=== PATIENT | female | born 1970 | race Caucasian/White ===

== ENCOUNTER 2022-08-14 21:09 | Emergency (ER) | payer MEDICAID ==
--- NOTE | 2022-08-14 22:00 | NUR ---
Patient left without being triaged. ER MD aware
== END 2022-08-14 22:00 | disposition left against medical advice (07) ==
LOC: SED 21:09
DX: R05.9 Cough, unspecified (principal); R50.9 Fever, unspecified; R51.9 Headache, unspecified; Z53.21 Procedure and treatment not carried out due to patient leaving prior to being seen by health care provider

== ENCOUNTER 2024-02-18 19:12 | Emergency (ER) | payer MEDICAID ==
[~2024-02-18] VITALS: Ht 160 cm; Wt 96.2 kg
[2024-02-18 19:14] VITALS: BP_SYST 157; TEMP 98; O2SAT 95
[2024-02-18 19:41] LABS: BASOPHILS # (AUTO) 0.2 K/uL (0.0-0.2); EOSINOPHILS # (AUTO) 0.3 K/uL (0.0-0.4); EOSINOPHILS % (AUTO) 1.9 % (0.0-4.0); HEMATOCRIT 42.5 % (36-48); HEMOGLOBIN 14.1 g/dL (12.0-16.0); LYMPHOCYTES # (AUTO) 3.2 K/uL (1.0-5.5); LYMPHOCYTES % (AUTO) 20.2 % (20.5-51.5); MEAN CORPUSCULAR HEMOGLOBIN 29 pg (27-31); MEAN CORPUSCULAR HGB CONC 33 % (32-36); MEAN CORPUSCULAR VOLUME 87 fL (79.0-98.0); MONOCYTES # (AUTO) 1.3 K/uL (0.0-1.0); MONOCYTES % (AUTO) 8.1 % (1.7-9.3); NEUTROPHILS # (AUTO) 10.8 K/uL (1.8-7.7); NEUTROPHILS % (AUTO) 68.8 % (40.0-70.0); PLATELET COUNT (AUTO) 277 K/uL (130-430); RED BLOOD CELL COUNT(AUTO) 4.91 MIL/uL (4.2-6.2); RED CELL DISTRIBUTION WIDTH 14.8 % (9.0-15.0); WHITE BLOOD COUNT (AUTO) 15.7 K/uL (4.8-10.8)
[2024-02-18 19:43] LABS: ERYTHROCYTE SEDIMENTATION RATE 15 MM/HR (0-20)
[2024-02-18] MEDS: KETOROLAC TROMETHAMINE 30 MG VIAL IM ONE (19:49)
[2024-02-18 19:55] LABS: CALCIUM 9.2 mg/dL (8.4-11.0); CREATININE 0.88 mg/dL (0.55-1.30); POTASSIUM 4.4 mmol/L (3.5-5.1)
[2024-02-18] MEDS: ONDANSETRON 4 MG ODT TAB PO ONE (20:01)
[2024-02-18] MEDS ORDERED: BUTA1CAP43 PO (21:16)
[2024-02-18 21:38] VITALS: BP_SYST 133; PULSE 90; RESP 22; TEMP 98.6; O2SAT 95
[2024-02-19] MEDS ORDERED: HYDR-3917 PO (12:06)
== END 2024-02-18 21:30 | disposition home or self-care (01) ==
LOC: SED 19:12
DX: G43.909 Migraine, unspecified, not intractable, without status migrainosus (principal); I48.91 Unspecified atrial fibrillation; I10 Essential (primary) hypertension; F17.200 Nicotine dependence, unspecified, uncomplicated; Z79.899 Other long term (current) drug therapy
CPT/HCPCS: 99285; 70450; 80048; 85025; 85651; 36415; 96372; Q0162; J1885